=== PATIENT | female | born 1945 | race Caucasian/White ===

== ENCOUNTER 2019-08-04 08:28 | Outpatient (REF) | payer OTHER, SELFPAY ==
[2019-08-04 21:35] LABS: Abs Immature Grans 0.02 k/cumm (0.0-0.09); Absolute Basophil Count 0.07 k/cumm (0.0-0.2); Absolute Eosinophil Count 0.46 k/cumm (0.0-0.7); Absolute Lymphocyte Count 2.01 k/cumm (1.2-3.4); Absolute Monocyte Count 0.51 k/cumm (0.11-0.7); Absolute Neutrophil Count 3.38 k/cumm (1.2-6.7); Basophils % 1.1; Eosinophils % 7.1; HCT 42.1 % (36.0-46.0); HGB 13.6 g/dL (12.0-15.5); Immature Grans % 0.3; Lymphocytes % 31.2; Mean Corp. HGB Concentration 32.3 g/dL (32.0-36.0); Mean Corpuscular Volume 92.7 fL (80-95); Mean Platelet Volume 10.7 fL (8.0-11.0); Monocytes % 7.9; Neutrophils % 52.4; Platelet Count 382 x1000/uL (130-400); RBC 4.54 m/cumm (4.00-5.20); White Blood Cell Count 6.45 k/cumm (4.4-10.8)
[2019-08-04 22:20] LABS: ALT 21 U/L (14-59); AST 17 U/L (15-37); Albumin 3.8 g/dL (3.4-5.0); Alkaline Phosphatase 100 U/L (46-116); Anion Gap 9.5 mmol/L (3-11); BUN 13 mg/dL (7-18); Bilirubin, Total 0.4 mg/dL (0.2-1.0); CO2 26.5 mmol/L (21.0-32.0); CREATININE 0.97 mg/dL (0.55-1.02); Calcium 9.7 mg/dL (8.5-10.1); Calculated LDL 198 mg/dL; Chloride 106 mmol/L (98-107); Cholesterol 303 mg/dL (50-200); Estimated GFR 56.29 (mL/min/1.73m2); Glucose 94 mg/dL (70-100); HDL Cholesterol 84 mg/dL (40-60); Potassium 4.3 mmol/L (3.5-5.1); Sodium 142 mmol/L (136-145); TSH (W/Ref FT4) 3.98 uIU/mL (0.36-3.74); Total Protein 7.4 g/dL (6.4-8.2); Triglyceride 107 mg/dL (30-150)
[2019-08-04 22:37] LABS: FREE T4 0.93 ng/dL (0.76-1.46)
== END 2019-08-04 08:48 ==
LOC: NCHCN 08:28
PROVIDERS: Visit Provider Family Medicine
DX: E78.5 Hyperlipidemia, unspecified (principal); I48.0 Paroxysmal atrial fibrillation; J44.9 Chronic obstructive pulmonary disease, unspecified; R09.89 Other specified symptoms and signs involving the circulatory and respiratory systems; Z87.891 Personal history of nicotine dependence; J32.9 Chronic sinusitis, unspecified
CPT/HCPCS: 80053; 80061; 84439; 84443; 85025

== ENCOUNTER 2019-10-07 08:29 | Outpatient (REF) | payer OTHER, SELFPAY ==
[2019-10-07 22:21] LABS: Calculated LDL 146 mg/dL; Cholesterol 263 mg/dL (50-200); HDL Cholesterol 99 mg/dL (40-60); TSH (W/Ref FT4) 5.07 uIU/mL (0.36-3.74); Triglyceride 91 mg/dL (30-150)
[2019-10-07 22:37] LABS: FREE T4 0.94 ng/dL (0.76-1.46)
== END 2019-10-07 08:49 ==
LOC: NCHCN 08:29
PROVIDERS: Visit Provider Family Medicine
DX: E78.5 Hyperlipidemia, unspecified (principal); J44.9 Chronic obstructive pulmonary disease, unspecified; I10 Essential (primary) hypertension; I60.7 Nontraumatic subarachnoid hemorrhage from unspecified intracranial artery; G45.9 Transient cerebral ischemic attack, unspecified; I48.0 Paroxysmal atrial fibrillation; Z87.891 Personal history of nicotine dependence
CPT/HCPCS: 80061; 84439; 84443

== ENCOUNTER 2020-06-07 16:29 | Outpatient (REF) | payer OTHER, SELFPAY ==
[2020-06-07 21:29] LABS: Anion Gap 8.3 mmol/L (3-11); BUN 21 mg/dL (7-18); CO2 28.7 mmol/L (21.0-32.0); CREATININE 0.92 mg/dL (0.55-1.02); Calcium 9.5 mg/dL (8.5-10.1); Chloride 103 mmol/L (98-107); Estimated GFR 59.67 (mL/min/1.73m2); Glucose 93 mg/dL (74-106); Potassium 4.1 mmol/L (3.5-5.1); Sodium 140 mmol/L (136-145); TSH (W/Ref FT4) 2.88 uIU/mL (0.36-3.74)
== END 2020-06-07 16:49 ==
LOC: NCHCN 16:29
PROVIDERS: Visit Provider Nurse Practitioner Family
DX: I10 Essential (primary) hypertension (principal); E78.5 Hyperlipidemia, unspecified; R94.6 Abnormal results of thyroid function studies
CPT/HCPCS: 80048; 84443

== ENCOUNTER 2020-08-19 13:58 | Outpatient (REF) | payer OTHER, SELFPAY ==
[2020-08-19 21:43] LABS: TSH 3.16 uIU/mL (0.36-3.74)
[2020-08-19 22:11] LABS: Calculated LDL 136 mg/dL (<100); Cholesterol 251 mg/dL (<200); HDL Cholesterol 95 mg/dL (40-60); Triglyceride 103 mg/dL (<150)
== END 2020-08-19 14:18 ==
LOC: NCHCN 13:58
PROVIDERS: Visit Provider Nurse Practitioner Family
DX: E05.90 Thyrotoxicosis, unspecified without thyrotoxic crisis or storm (principal); E78.5 Hyperlipidemia, unspecified
CPT/HCPCS: 80061; 84443

== ENCOUNTER 2021-05-09 09:55 | Outpatient (REF) | payer OTHER, SELFPAY ==
[2021-05-09 14:08] LABS: Anion Gap 7.4 mmol/L (3-11); BUN 18 mg/dL (7-18); CO2 29.6 mmol/L (21.0-32.0); CREATININE 0.8 mg/dL (0.55-1.02); Calcium 9.8 mg/dL (8.5-10.1); Chloride 106 mmol/L (98-107); Glucose 89 mg/dL (74-106); Potassium 4.4 mmol/L (3.5-5.1); Sodium 143 mmol/L (136-145); TSH (W/Ref FT4) 2.98 uIU/mL (0.36-3.74)
[2021-05-09 14:41] LABS: Hemoglobin A1C 5.8 % (<5.7)
== END 2021-05-09 09:56 | disposition home or self-care (01) ==
LOC: NCHCN 09:55
PROVIDERS: Visit Provider Nurse Practitioner Family
DX: E05.90 Thyrotoxicosis, unspecified without thyrotoxic crisis or storm (principal); R73.9 Hyperglycemia, unspecified; I10 Essential (primary) hypertension
CPT/HCPCS: 80048; 83036; 84443

== ENCOUNTER 2022-05-18 20:46 | Outpatient (REF) | payer OTHER, SELFPAY ==
[2022-05-18 21:32] LABS: Anion Gap 7.3 mmol/L (3-11); BUN 22 mg/dL (7-18); CO2 28.7 mmol/L (21.0-32.0); CREATININE 0.8 mg/dL (0.55-1.02); Calcium 9.3 mg/dL (8.5-10.1); Calculated LDL 167 mg/dL (<100); Chloride 102 mmol/L (98-107); Cholesterol 298 mg/dL (<200); Glucose 93 mg/dL (74-106); HDL Cholesterol 105 mg/dL (40-60); Potassium 4.1 mmol/L (3.5-5.1); Sodium 138 mmol/L (136-145); Triglyceride 130 mg/dL (<150)
[2022-05-18 21:33] LABS: Hemoglobin A1C 5.7 % (<5.7)
== END 2022-05-18 20:47 | disposition home or self-care (01) ==
LOC: NCHCN 20:46
PROVIDERS: Visit Provider Nurse Practitioner Family
DX: I10 Essential (primary) hypertension (principal); R73.03 Prediabetes; E78.5 Hyperlipidemia, unspecified
CPT/HCPCS: 80048; 80061; 83036

== ENCOUNTER 2024-03-31 12:40 | Outpatient (REF) | payer OTHER, SELFPAY ==
[2024-03-31 15:13] LABS: HCT 37.7 % (36.0-46.0); HGB 12.4 g/dL (11.2-15.7); MCH 31.1 pg (27.0-33.0); MCHC 32.9 % (32.0-36.0); MCV 95 fL (80-95); MPV 10.5 fL (8.0-11.0); Platelet Count 322 10^3/uL (130-400); RBC 3.99 10^6/uL (3.93-5.22); RDW 13.8 % (11.7-14.6); RDW-SD 48.2 fL
[2024-03-31 15:39] LABS: Anion Gap 9.7 mmol/L (3-11); BUN 18 mg/dL (7-18); CO2 26.3 mmol/L (21.0-32.0); CREATININE 0.9 mg/dL (0.55-1.02); Calcium 9.5 mg/dL (8.5-10.1); Calculated LDL 143 mg/dL (<100); Chloride 107 mmol/L (98-107); Cholesterol 278 mg/dL (<200); Estimated GFR 65.44 (mL/min/1.73m2); Glucose 132 mg/dL (74-106); HDL Cholesterol 97 mg/dL (40-60); Sodium 143 mmol/L (136-145); TSH (W/Ref FT4) 2.69 uIU/mL (0.36-3.74); Triglyceride 193 mg/dL (<150)
[2024-03-31 16:21] LABS: Hemoglobin A1C 5.8 % (<5.7)
== END 2024-03-31 12:41 | disposition home or self-care (01) ==
LOC: NCHCN 12:40
PROVIDERS: PCP Nurse Practitioner Family; Visit Provider Nurse Practitioner Family
DX: R73.03 Prediabetes (principal); E03.9 Hypothyroidism, unspecified; E78.5 Hyperlipidemia, unspecified; I10 Essential (primary) hypertension
CPT/HCPCS: 80048; 80061; 85027; 83036; 84443

== ENCOUNTER 2025-03-30 11:28 | Outpatient (REF) | payer MEDICARE, SELFPAY ==
[2025-03-30 15:08] LABS: HCT 39.6 % (36.0-46.0); HGB 12.9 g/dL (11.2-15.7); MCH 29.9 pg (27.0-33.0); MCHC 32.6 % (32.0-36.0); MCV 92 fL (80-95); MPV 10.6 fL (8.0-11.0); Platelet Count 322 10^3/uL (130-400); RBC 4.32 10^6/uL (3.93-5.22); RDW 15.5 % (11.7-14.6); WBC 7.35 10^3/uL (4.4-10.8)
[2025-03-30 15:41] LABS: ALT 22 U/L (14-59); AST 23 U/L (15-37); Albumin 3.6 g/dL (3.4-5.0); Alkaline Phosphatase 92 U/L (46-116); Anion Gap 6.7 mmol/L (3-11); BUN 20 mg/dL (7-18); Bilirubin, Total 0.5 mg/dL (0.2-1.0); CO2 29.3 mmol/L (21.0-32.0); CREATININE 0.8 mg/dL (0.55-1.02); Calcium 9.3 mg/dL (8.5-10.1); Calculated LDL 141 mg/dL (<100); Chloride 107 mmol/L (98-107); Cholesterol 275 mg/dL (<200); Glucose 93 mg/dL (74-106); HDL Cholesterol 107 mg/dL (>or=50); Sodium 143 mmol/L (136-145); Total Protein 7.5 g/dL (6.4-8.2); Triglyceride 136 mg/dL (<150)
[2025-03-30 16:58] LABS: Hemoglobin A1C 5.6 % (<5.7)
== END 2025-03-30 11:29 | disposition home or self-care (01) ==
LOC: NCHCN 11:28
PROVIDERS: PCP Nurse Practitioner Family; Visit Provider Nurse Practitioner Family
DX: I10 Essential (primary) hypertension (principal); R73.03 Prediabetes; E78.5 Hyperlipidemia, unspecified; Z51.81 Encounter for therapeutic drug level monitoring
CPT/HCPCS: 80053; 80061; 85027; 83036

== ENCOUNTER 2025-07-22 11:44 | Outpatient (REF) | payer MEDICARE, SELFPAY ==
--- NOTE | 2025-07-22 09:55 | SKI_PTH ---
PATIENT: Terri Tolliver LOC: [facility]#:[id number] AGE/SX: 80/F ROOM: RE07/22/[address]: Isabel Flores : 1945 BED: DIS: 07/22/2025 SPEC #: [id number] RECD: 07/22/25 17:09 STATUS: ANTONETTE RAMOS #: [id number] AMY: 07/22/25 09:[address]: Isabel Flores DEPT: Surgical Specimen RECD BY: Minoo Saleh Tissues: 1 - SKIN BIOPSY(SHAVE/PUNCH) Procedures: SKIN LEVEL 4 Comments: [id number]
== END 2025-07-22 11:45 | disposition home or self-care (01) ==
LOC: NCHCN 11:44
PROVIDERS: PCP Nurse Practitioner Family; Visit Provider Nurse Practitioner Family
DX: L30.8 Other specified dermatitis (principal); L98.9 Disorder of the skin and subcutaneous tissue, unspecified
CPT/HCPCS: 88305